=== PATIENT | male | born 1950 | race Caucasian/White ===

== ENCOUNTER 2017-04-03 08:50 | Emergency (ER) | payer OTHER ==
[~2017-04-03] VITALS: Ht 195.6 cm; Wt 98.4 kg
--- NOTE | 2017-04-03 09:14 | Urgent Treatment Center Report ---
History of Present Issue Date/Time Seen by Provider 04/03/17 0906 Visit Reason Pt arrived:Walked Presenting Problem:PT STATES HE FELL YESTERDAY ON HIS LEFT SIDE AND INJURIED HIS WRIST. SWELLING IS NOTED Location if Accident:Home Onset of symptoms date/time:/ or onset unknown for:MEDICAL HX UNKNOWN Have you (or family members/close friends) recently traveled outside the [place]? N If Yes, where/when: Have you had exposure to infectious disease within the past month? TB? Other? Specify: Pateint state that he was at work yesterday evening for the [employer] when he tripped over some wire and fell landing on his left side and injuried his left wrist. Patient complaining of pain and swelling of left wrist ever since the fall. State that he is able to move his finger but has continued to have pain and swelling in the wrist area ever since. State that he fell and landed palm down and hand bent back underneath him ALLERGIES Coded Allergies: Penicillins (Intermediate, 04/03/17) latex (Intermediate, 04/03/17) Home Medications Reported Medications LISINOPRIL/HYDROCHLOROTHIAZIDE (Lisinopril-Hctz 20-25 MG Tab) 1 TAB PO DAILY Apixaban (Eliquis) 5 MG PO BID SOTALOL HCL (Sotalol) 80 MG PO BID History Medical History General Angina: No PA: No Hypertension? Yes Hyperlipidemia? No CHF? No COPD? No Asthma? No CVA? No Seizures? No Diabetes? No GB Disease: No MRSA? Yes TB? No Cancer? No Immunization HX DT/Tetanus UNKNOWN Surgical Hx Previous Surgery?Y SEVERAL KNEE SURGERIES L TOTAL KNEE REPLACEMENT CHOLESTECTOMY Social History Smoking Hx Smoker: Never Smoker Tobacco: No Alcohol Alcohol: No Review of Systems All Other Systems Reviewed and Negative Comment Pain and swelling in left wrist after falling yesterday at work over some wire Physical Exam Vital Signs Vital Signs Date Time Temp Pulse Resp B/P Pulse O2 O2 Flow FiO2 Ox Delivery Rate 04/03 0859 98.0 56 18 119/62 98 General Appearance normal appearance, WD/WN, no apparent distress Respiratory Status Yes: trachea midline, chest symmetrical, non tender chest. No: respiratory distress. Cardiovascular normal exam, regular rate/rhythm, no peripheral edema Extremities swelling, Swelling to left wrist, good pulses, good cap refill pain with touch Neurologic alert, hardwood floor layer II-XII nml as tested, normal exam, no motor/sensory deficits, oriented x 3 Medical Decision Making LABS/Meds/Orders Pt receiving controlled substance in ED? No Results/Orders Orders Procedure Date/time Status UT STABILIZE JOINT/AREA 04/03 912 Active XRAY/CT/US XRAY/CT/US XRAY wrist XR interpretation by reviewed by me, discussed w/radiologist Xray Results no fracture seen Comment Radiologist did not see fracture discussed with Dr Hoff seen abnormality possible fracture of distal radius will refer to Ortho for further eval Departure Departure Time of Disposition 958 Disposition DC Home or Self Care(routine) Clinical Impression Primary Impression: Wrist injury Qualifiers: Encounter type: initial encounter Laterality: left Qualified Code: S69.92XA - Unspecified injury of left wrist, hand and finger(s), initial encounter Condition STABLE Referrals Sharon NORRIS,Davey MCWILLIAMS MD, CARLOS MANUEL FULLER,RYAN [place] (Family) Patient Instructions How To Perform RICE (Rest, Ice, Compress, Elevate) Additional Instructions *RICE, Rest the extremity, Ice 15-20 minutes 3-4 times daily, Compress- wear the mike wrap as discussed as much as possible to help reduce swelling and pain, Elevate the extremity when at rest *Mike wrap is for support and help control swelling, use it except in the shower. Be sure that is not to tight but not to loose either *Elevate when resting *Ibuprofen 600-800mg every 6-8 hours as needed for pain an inflammation. If need something more can take Tylenol in between doses of Ibuprofen to help Immediately follow up for new or worsening of symptoms, or no noticeable improvement over the next 3-5 days Discharge Counseling Counseled pt/family regarding diagnosis, test results, home care, follow up needs at [phone]
--- NOTE | 2017-04-03 09:50 | RADIOLOGY REPORT PS360 ---
WRIST-3 VIEWS-LT HISTORY: Pain following injury FALL INJURY ORDERING PHYSICIAN: MORIS SHARPE APRN PATIENT AGE: 66 years COMPARISON: 05/02/2011 FINDINGS: No fracture or dislocation. No lytic or blastic change. There is normal mineralization. Osteoarthritic changes are present at the radiocarpal joint. Cystic changes involve the lunate as before. Mild chondrocalcinosis of the triangular fibrocartilage and there is minimal calcification lateral to the radio scaphoid joint. IMPRESSION: 1. No acute finding. 2. Osteoarthritic change with chondrocalcinosis
[2017-04-03 10:11] VITALS: BP 119/62
== END 2017-04-03 10:13 | disposition home or self-care (01) ==
LOC: UTC 08:50
DX: S69.92XA Unspecified injury of left wrist, hand and finger(s), initial encounter (principal); W01.0XXA Fall on same level from slipping, tripping and stumbling without subsequent striking against object, initial encounter; Y93.9 Activity, unspecified; Y92.59 Other trade areas as the place of occurrence of the external cause; Y99.0 Civilian activity done for income or pay; I10 Essential (primary) hypertension; Z79.01 Long term (current) use of anticoagulants; Z79.899 Other long term (current) drug therapy